=== PATIENT | male | born 1965 | race African-American/Black ===

== ENCOUNTER 2021-05-10 14:11 | Inpatient (IN) | payer OTHER ==
[~2021-05-10] VITALS: Ht 175.3 cm; Wt 81.0 kg
[2021-05-10 14:24] VITALS: BP 141/104
[2021-05-10] MEDS ORDERED: NORVASC10 MG PO (14:26)
[2021-05-10 15:11] LABS: CALCIUM 10.1 mg/dL (8.5-10.1); CREATININE 4.1 mg/dL (0.6-1.3); POTASSIUM 3.8 mmol/L (3.5-5.1)
[2021-05-10 15:16] LABS: ALBUMIN 4.2 g/dL (3.4-5.0); TOTAL BILIRUBIN 0.7 mg/dL (<0.1-1.0); TOTAL PROTEIN 8.6 g/dL (6.4-8.2)
[2021-05-10 19:04] LABS: URINE BILIRUBIN NEGATIVE (Negative); URINE BLOOD NEGATIVE (Negative); URINE CLARITY CLEAR; URINE COLOR YELLOW; URINE GLUCOSE-RANDOM NEGATIVE (Negative); URINE KETONES NEGATIVE (Negative); URINE LEUKOCYTES NEGATIVE (Negative); URINE NITRITE NEGATIVE (Negative); URINE PROTEIN TRACE (Negative); URINE SPECIFIC GRAVITY >= 1.030 (1.005-1.030); URINE UROBILINOGEN 0.2 E.U./dl (0.2-1.0)
[2021-05-10 19:45] VITALS: BP 152/89
[2021-05-10 20:06] VITALS: BP 126/82
--- NOTE | 2021-05-11 05:06 | NUR ---
ASSUMED CARE OF PT 05/10/21 AT APPROX 2000. PT A&OX4, VSS ON ROOM AIR. IV SALLINE LOCKED. PT UP AD NATTY. PT SLEEPING WELL. ASSESSMENTS AND HOURLY ROUNDINGS COMPLETE. WILL CONTINUE TO MONITOR.
[2021-05-11 08:00] VITALS: BP 130/82
[2021-05-11 11:12] LABS: CALCIUM 9.1 mg/dL (8.5-10.1); CREATININE 1.8 mg/dL (0.6-1.3)
[2021-05-11 11:15] LABS: MAGNESIUM 2.2 mg/dL (1.8-2.4); PHOSPHORUS* 2.5 mg/dL (2.5-4.9)
--- NOTE | 2021-05-11 11:53 | NUR ---
1130: DR. GARCIA ANSWERING SERVICE CALLED AT THIS TIME. REQUESTING DR. GARCIA TO CALL THIS RN REGARDING PATIENT'S NEWEST LABS. 1145: DR. GARCIA CALLED AND REQUEST PATIENT'S LATEST LAB VALUES. NO NEW ORDERS AT THIS TIME.
[2021-05-11 16:01] VITALS: BP 112/68
--- NOTE | 2021-05-11 17:32 | NUR ---
PATIENT RESTING IN BED. ALERT AND ORIENTED X4. UROLOGIST CONSULT DONE TODAY. IV TO RIGHT FOREARM, SALINE LOCK. DRESSING C/DI. TOLEATING REGULAR DIET. BED IN LOW/LOCKED POSTION. CALL LIGHT WITHIN REACH. NO C/O PAIN/DISCOMFORT. NO QUESTIONS OR CONCERNS.
[2021-05-11 19:17] VITALS: BP 126/81
--- NOTE | 2021-05-12 03:52 | NUR ---
PT A&OX4, VSS ON ROOM AIR, PT UP AD NATTY. IV FLUIDS INFUSING ORDERED. NO CO PAIN OR DISCOMFORT THIS SHIFT. PT SLEEPING WELL. ASSESSMENTS AND HOURLY ROUNDINGS COMPLETE. WILL CONTINUE TO MONITOR.
[2021-05-12 08:00] VITALS: BP 140/88
[2021-05-12 10:22] LABS: CALCIUM 8.8 mg/dL (8.5-10.1); CREATININE 1.5 mg/dL (0.6-1.3)
[2021-05-12 10:23] LABS: POTASSIUM 5.1 mmol/L (3.5-5.1)
[2021-05-12 11:13] VITALS: BP 140/88
--- NOTE | 2021-05-12 12:24 | NUR ---
PATIENT DISCHARGED AT THIS TIME VIA WHEELCHAIR ACCOMPANIED BY NURSE TO [facility] RIDE TO HOTEL. IV DC'D, COTTON AND BANDAID TO SITE. NO COMPLICATIONS. DISCHARGE INSTRUCTIONS REVIEWED. PATIENT ACKNOWLEDGED UNDERSTANDING. ALL QUESTIONS AND CONCERNS ADDRESSED.
== END 2021-05-12 12:28 | disposition home or self-care (01) | DRG 923 ==
LOC: M.ERS 14:11 → M.TBA-ER 17:08 → M.ORTHSURG 20:22
PROVIDERS: Emergency Medicine; Internal Medicine; Internal Medicine Nephrology; ADMIT Internal Medicine; ATTEND Internal Medicine
DX: T67.01XA Heatstroke and sunstroke, initial encounter (principal); N17.9 Acute kidney failure, unspecified; I10 Essential (primary) hypertension; X58.XXXA Exposure to other specified factors, initial encounter; Z20.822 Contact with and (suspected) exposure to COVID-19; Z79.899 Other long term (current) drug therapy; Z88.2 Allergy status to sulfonamides; Z91.048 Other nonmedicinal substance allergy status; Z72.89 Other problems related to lifestyle; Y93.89 Activity, other specified; Y92.89 Other specified places as the place of occurrence of the external cause; Y99.8 Other external cause status; Z91.14 Patient's other noncompliance with medication regimen

== ENCOUNTER 2021-07-09 19:43 | Emergency (ER) | payer OTHER ==
[~2021-07-09] VITALS: Ht 175.3 cm; Wt 79.4 kg
[~2021-07-09 19:43] MED LIST: NORVASC10 MG PO
[2021-07-09 20:29] VITALS: BP 135/85
[2021-07-10] MEDS ORDERED: HYDROCODON-ACE1 EAC7 PO (23:47)
[2021-07-10] MEDS ORDERED: IBUPROFEN 800800 MG PO (23:47)
[2021-07-10] MEDS ORDERED: DOXYCYCLINE 10100 MG PO (23:47)
== END 2021-07-09 20:29 | disposition left against medical advice (07) ==
LOC: M.ERS 19:43
DX: K08.89 Other specified disorders of teeth and supporting structures (principal); Z88.2 Allergy status to sulfonamides; Z53.21 Procedure and treatment not carried out due to patient leaving prior to being seen by health care provider

== ENCOUNTER 2021-07-10 20:04 | Emergency (ER) | payer OTHER ==
[~2021-07-10] VITALS: Ht 175.3 cm; Wt 77.1 kg
[2021-07-10] MEDS ORDERED: IBUPROFEN 800800 MG PO (23:47)
[2021-07-10] MEDS ORDERED: HYDROCODON-ACE1 EAC7 PO (23:47)
[2021-07-10] MEDS ORDERED: DOXYCYCLINE 10100 MG PO (23:47)
[2021-07-10 23:59] VITALS: BP 145/62
== END 2021-07-11 | disposition home or self-care (01) ==
LOC: M.ERS 20:04
DX: K02.9 Dental caries, unspecified (principal); R22.0 Localized swelling, mass and lump, head; I10 Essential (primary) hypertension; Z88.2 Allergy status to sulfonamides; Z79.899 Other long term (current) drug therapy